=== PATIENT | female | born 1965 ===

== ENCOUNTER 2021-03-02 16:19 | Emergency (ER) | payer BC ==
[~2021-03-02] VITALS: Ht 162.6 cm; Wt 54.4 kg
[2021-03-02] MEDS ORDERED: LEVOTHYROXINE25 MCG PO (16:35)
== END 2021-03-13 | disposition home or self-care (01) ==
LOC: ER 16:19
DX: N39.0 Urinary tract infection, site not specified (principal); E03.9 Hypothyroidism, unspecified; Z88.9 Allergy status to unspecified drugs, medicaments and biological substances; Z88.1 Allergy status to other antibiotic agents